=== PATIENT | male | born 1980 | race Caucasian/White ===

== ENCOUNTER 2024-04-01 10:51 | Observation (INO) ==
[2024-04-01] MEDS: Ondansetron ODT 4 mg TAB 4 MG TAB PO ONE (17:01)
[2024-04-01 19:58] LABS: ABS Basophils 0.1 10^3/uL (0.0-0.1); ABS Eosinophils 0.4 10^3/uL (0.0-0.5); ABS Lymphocytes 3.5 10^3/uL (1.0-4.8); ABS Monocytes 0.5 10^3/uL (0.0-1.1); ABS Neutrophils 3.8 10^3/uL (1.5-7.6); Eosinophil % 4.2 %; Hematocrit 43.7 % (38-53); Hemoglobin 14.9 g/dL (13.2-16.3); Lymphocyte % 42.6 %; Mean Corpuscular Hemoglobin 30.7 pg (27-33); Mean Corpuscular Volume 90.2 fL (80-97); Platelet Count 240 10^3/uL (150-450); Red Blood Count 4.84 10^6/uL (4.06-5.63); Red Cell Distribution Width 12.8 % (12-17); White Blood Count 8.3 10^3/uL (3.6-10.2)
[2024-04-01 20:30] LABS: Albumin 4.6 g/dL (3.5-5.7); Albumin/Globulin Ratio 1.6 (1-3); Calcium 10.2 mg/dL (8.6-10.3); Creatinine, Serum 1.07 mg/dL (0.67-1.17); Globulin 2.8 g/dL (2-4); Total Bilirubin 0.3 mg/dL (0.2-1.0); Total Protein 7.4 g/dL (6.4-8.9); eGFR CKD-EPI 88.9 (>60)
[2024-04-01] MEDS: Iohexol 350 (CONTRAST) 500 ML MDV IV ONE (21:38)
[2024-04-02] MEDS: levETIRAcetam IV 1,500 MG in NS 0.9% 100 ml BAG 100 ML IVPB ONE (01:00)
[2024-04-02] MEDS ORDERED: Nicotine GUM 2MG FRUIT FLAVOR PO PRN (02:07)
[2024-04-02] MEDS: Nicotine PATCH 14 MG/24 HR PATCH TRANSDERM SCH (09:15)
[2024-04-02] MEDS: Nicotine PATCH 21 MG/24 HR PATCH TRANSDERM SCH (12:08)
[2024-04-02 18:18] VITALS: BP 131/99
== END 2024-04-02 20:08 | disposition home or self-care (01) ==
LOC: EDHOLD 10:51 → ED 10:51 → SUATTDRO 04-02 01:09 → MEDTELE 04-02 08:49
PROVIDERS: ADMIT Hospitalist; ATTEND Internal Medicine